=== PATIENT | female | born 1960 | race Caucasian/White ===

== ENCOUNTER 2017-10-05 22:32 | Inpatient (IN) | payer BC, OTHER ==
[~2017-10-05] VITALS: Ht 162.6 cm; Wt 90.7 kg
[2017-10-06] VITALS (8 sets, daily range): BP systolic 135–175; BP diastolic 80–102
[2017-10-06] MEDS ORDERED: MAG HYDROX/AL HYDROX/SIMETH 30 ML LIQUID UDC PO PRN
[2017-10-06] MEDS ORDERED: diphenhydrAMINE 50 MG CAPSULE PO PRN
[2017-10-06] MEDS ORDERED: IBUPROFEN 600 MG TABLET PO PRN
[2017-10-06] MEDS ORDERED: MIRALAX 17 GM POWD.PACK PO PRN
[2017-10-06] MEDS ORDERED: MAGNESIUM HYDROXIDE 30 ML LIQUID UDC PO PRN
[2017-10-06] MEDS ORDERED: ONDANSETRON ODT 4 MG TAB.RAPDIS SL PRN
[2017-10-06] MEDS ORDERED: CLONIDINE HCL 0.1 MG TABLET PO PRN
[2017-10-06] MEDS ORDERED: LORAZEPAM 2 MG/1 ML VIAL IM PRN
[2017-10-06] MEDS ORDERED: LOPERAMIDE HCL 2 MG CAPSULE PO PRN ×2
[2017-10-06] MEDS ORDERED: ONDANSETRON 4 MG/2 ML VIAL IM PRN
[2017-10-06] MEDS ORDERED: THIAMINE HCL 200 MG/2 ML VIAL IM ONE
[2017-10-06] MEDS ORDERED: DICYCLOMINE HCL 20 MG TABLET PO PRN
[2017-10-06] MEDS ORDERED: LORAZEPAM 1 MG TABLET PO PRN ×2
[2017-10-06] MEDS ORDERED: ACETAMINOPHEN 325 MG TABLET PO PRN
[2017-10-06 00:24] LABS: BASOPHILS % (AUTO) 0.3 % (0.0-2.0); EOSINOPHILS # (AUTO) 0.2 K/uL (0.0-0.7); EOSINOPHILS % (AUTO) 3.8 % (0.0-7.0); HEMATOCRIT 43.6 % (37-47); HEMOGLOBIN 13.9 G/DL (12.0-16.0); LYMPHOCYTES # (AUTO) 2.3 K/UL (0.8-4.8); LYMPHOCYTES % (AUTO) 35.8 % (20.5-51.5); MEAN CORPUSCULAR HEMOGLOBIN 26.9 UUG (27.0-31.0); MEAN CORPUSCULAR HGB CONC 32 g/dL (32.0-37.0); MEAN CORPUSCULAR VOLUME 84.8 FL (81.0-99.0); MONOCYTES # (AUTO) 0.5 K/UL (0.1-1.30); MONOCYTES % (AUTO) 7.9 % (0.0-11.0); NEUTROPHILS # (AUTO) 3.5 K/UL (1.8-8.9); NEUTROPHILS % (AUTO) 52.2 % (38.5-71.5); PLATELET COUNT (AUTO) 246 K/UL (150-450); RED BLOOD CELL COUNT(AUTO) 5.15 MIL/UL (4.2-5.4); WHITE BLOOD COUNT (AUTO) 6.5 K/UL (4.0-11.2)
[2017-10-06 00:46] LABS: ALANINE AMINOTRANSFERASE 66 U/L (14-59); ALKALINE PHOSPHATASE 84 U/L (50-136); AMYLASE 37 U/L (25-115); ASPARTATE AMINOTRANSFERASE 42 U/L (15-37); BILIRUBIN,TOTAL 0.4 mg/dL (0.2-1.0); CARBON DIOXIDE 32 mmol/L (21-32); CHLORIDE 100 mmol/L (98-107); CREATININE 0.9 mg/dL (0.6-1.3); MAGNESIUM 1.7 mg/dL (1.8-2.4); POTASSIUM 3.8 mmol/L (3.5-5.1); TOTAL PROTEIN, SERUM 8.3 g/dL (6.4-8.2); UREA NITROGEN, BLOOD 9 mg/dL (7-18)
[2017-10-06] MEDS ORDERED: THIAMINE HCL 200 MG/2 ML VIAL ONE (00:59)
[2017-10-06 01:02] LABS: ETHANOL < 3 MG/DL (0-0)
[2017-10-06 01:04] LABS: GLUCOSE 312 mg/dL (74-106)
[2017-10-06 03:30] LABS: *URINE HCG, QUAL NEGATIVE (NEGATIVE)
[2017-10-06 03:47] LABS: *AMPHETAMINE, URINE NEGATIVE (NEGATIVE); *BARBITURATE, URINE NEGATIVE (NEGATIVE); *CANNABINOID, URINE NEGATIVE (NEGATIVE); *COCCAINE, URINE NEGATIVE (NEGATIVE); *OPIATE, URINE NEGATIVE (NEGATIVE); *PHENCYCLIDINE SCREEN,URINE NEGATIVE (NEGATIVE)
[2017-10-06] MEDS ORDERED: GABA-534 PO (04:35)
[2017-10-06] MEDS ORDERED: IBUP-1957 PO (04:35)
[2017-10-06] MEDS ORDERED: GLYB2.5T4 PO (04:35)
[2017-10-06] MEDS ORDERED: HYDR25TA4 PO (04:35)
[2017-10-06] MEDS ORDERED: ASPI-605 PO (04:35)
[2017-10-06] MEDS ORDERED: CYCL10TA9 PO (04:35)
[2017-10-06] MEDS ORDERED: LOSA100T15 PO (04:35)
[2017-10-06] MEDS: THIAMINE HCL 100 MG TABLET PO SCH (08:52)
[2017-10-06] MEDS: MULTIVITAMINS,THERAPEUTIC TABLET PO SCH (08:52)
[2017-10-06] MEDS: FOLIC ACID 1 MG TABLET PO SCH (08:52)
[2017-10-06] MEDS ORDERED: TUBERCULIN,PURIF.PROT.DERIV. 5 TU/0.1 ML TEST ID ONE (09:00)
[2017-10-06] MEDS ORDERED: MAGNESIUM OXIDE 400 MG TABLET PO ONE (10:00)
[2017-10-06] MEDS ORDERED: DEXTROSE 50% 50 ML DISP.SYRIN IV PRN (11:45)
[2017-10-06] MEDS: GABAPENTIN 300MG PO SCH ×2 (13:12→17:11)
[2017-10-06] MEDS ORDERED: LOSARTAN POTASSIUM 50 MG TABLET PO ONE ×2 (15:00→20:15)
[2017-10-06] MEDS ORDERED: HYDROCHLOROTHIAZIDE 25 MG TABLET PO ONE (15:00)
[2017-10-06] MEDS ORDERED: LORAZEPAM 1 MG TABLET PO ONE ×2 (15:00→21:00)
[2017-10-06] MEDS: BLOOD SUGAR DIAGNOSTIC 1 EACH STRIP VI SCH ×2 (17:11→21:34)
[2017-10-06] MEDS: GLYBURIDE 2.5 MG PO SCH (17:12)
[2017-10-06] MEDS: INSULIN REGULAR, HUMAN 300 UNIT/3 ML VIAL SQ PRN (17:29)
[2017-10-06] MEDS: hydrALAZINE HCL 50 MG TABLET PO PRN (17:34)
[2017-10-06] MEDS ORDERED: hydrALAZINE HCL 50 MG TABLET PO ONE (20:15)
[2017-10-06] MEDS: ATORVASTATIN 20 MG TABLET PO SCH (21:30)
[2017-10-06] MEDS: INSULIN REGULAR, HUMAN 300 UNITS/3 ML VIAL SQ PRN (21:35)
[2017-10-07] VITALS (7 sets, daily range): BP systolic 137–179; BP diastolic 86–97
[2017-10-07] MEDS: hydrALAZINE HCL 50 MG TABLET PO PRN ×2 (05:48→16:59)
[2017-10-07 07:21] LABS: BILIRUBIN,DIRECT 0.1 mg/dL (0.0-0.2); BILIRUBIN,TOTAL 0.3 mg/dL (0.2-1.0); CREATININE 0.7 mg/dL (0.6-1.3); MAGNESIUM 2.7 mg/dL (1.8-2.4); TOTAL PROTEIN, SERUM 7.6 g/dL (6.4-8.2)
[2017-10-07] MEDS: BLOOD SUGAR DIAGNOSTIC 1 EACH STRIP VI SCH ×4 (07:52→21:20)
[2017-10-07] MEDS: MULTIVITAMINS,THERAPEUTIC TABLET PO SCH (08:25)
[2017-10-07] MEDS: FOLIC ACID 1 MG TABLET PO SCH (08:25)
[2017-10-07] MEDS: HYDROCHLOROTHIAZIDE 25MG PO SCH (08:26)
[2017-10-07] MEDS: GLYBURIDE 2.5 MG PO SCH ×2 (08:26→17:00)
[2017-10-07] MEDS: GABAPENTIN 300MG PO SCH ×3 (08:27→16:59)
[2017-10-07] MEDS: LOSARTAN 100MG PO SCH (08:27)
[2017-10-07] MEDS: ASPIRIN 81 MG PO SCH (08:27)
[2017-10-07] MEDS: INSULIN REGULAR, HUMAN 300 UNIT/3 ML VIAL SQ PRN ×3 (08:29→17:02)
[2017-10-07] MEDS: THIAMINE HCL 100 MG TABLET PO SCH (09:07)
[2017-10-07 09:12] LABS: HEPATITIS B SURFACE AG Negative (Negative)
[2017-10-07] MEDS: LORAZEPAM 1 MG TABLET PO SCH ×3 (12:43→21:30)
[2017-10-07] MEDS ORDERED: AMLODIPINE 5 MG TABLET PO ONE (17:00)
[2017-10-07] MEDS ORDERED: INSULIN DETEMIR 300 UNIT/3 ML CARTRIDGE SQ SCH (21:00)
[2017-10-07] MEDS: INSULIN REGULAR, HUMAN 300 UNITS/3 ML VIAL SQ PRN (21:27)
[2017-10-07] MEDS: ATORVASTATIN 20 MG TABLET PO SCH (21:30)
[2017-10-08] VITALS: BP 120/87
[2017-10-08 04:00] VITALS: BP 135/92
[2017-10-08 08:00] VITALS: BP 155/81
[2017-10-08] MEDS: BLOOD SUGAR DIAGNOSTIC 1 EACH STRIP VI SCH ×4 (08:19→20:56)
[2017-10-08] MEDS: GLYBURIDE 2.5 MG PO SCH ×2 (08:19→17:01)
[2017-10-08] MEDS: INSULIN REGULAR, HUMAN 300 UNIT/3 ML VIAL SQ PRN ×3 (08:40→16:47)
[2017-10-08] MEDS: HYDROCHLOROTHIAZIDE 25MG PO SCH (08:41)
[2017-10-08] MEDS: THIAMINE HCL 100 MG TABLET PO SCH (08:41)
[2017-10-08] MEDS: ASPIRIN 81 MG PO SCH (08:41)
[2017-10-08] MEDS: MULTIVITAMINS,THERAPEUTIC TABLET PO SCH (08:42)
[2017-10-08] MEDS: GABAPENTIN 300MG PO SCH (08:56)
[2017-10-08] MEDS: FOLIC ACID 1 MG TABLET PO SCH (08:56)
[2017-10-08] MEDS ORDERED: LORAZEPAM 1 MG TABLET PO SCH (09:00)
[2017-10-08] MEDS ORDERED: AMLODIPINE 5 MG TABLET PO SCH ×2 (09:00→21:00)
[2017-10-08 12:45] VITALS: BP 151/109
[2017-10-08] MEDS: GABAPENTIN 300 MG CAPSULE PO SCH ×3 (13:00→16:43)
[2017-10-08] MEDS: LOSARTAN 100MG PO SCH (13:21)
[2017-10-08 16:00] VITALS: BP 131/82
[2017-10-08 20:00] VITALS: BP 143/89
[2017-10-08] MEDS: ATORVASTATIN 20 MG TABLET PO SCH (20:26)
[2017-10-08] MEDS: INSULIN REGULAR, HUMAN 300 UNITS/3 ML VIAL SQ PRN (20:59)
[2017-10-08] MEDS ORDERED: INSULIN DETEMIR 300 UNIT/3 ML CARTRIDGE SQ SCH (21:00)
[2017-10-08] MEDS ORDERED: LOSA100T15 PO (21:38)
[2017-10-08] MEDS ORDERED: GLYB2.5T4 PO (21:38)
[2017-10-08] MEDS ORDERED: GABA-534 PO (21:38)
[2017-10-08] MEDS ORDERED: ASPI-605 PO (21:38)
[2017-10-08] MEDS ORDERED: IBUP-1955 PO (21:38)
[2017-10-08] MEDS ORDERED: HYDR25TA4 PO (21:38)
[2017-10-08] MEDS ORDERED: ATOR20TA PO (21:38)
[2017-10-08] MEDS ORDERED: INSU100I19 SQ (21:38)
[2017-10-08] MEDS ORDERED: AMLO10TA2 PO (21:38)
[2017-10-08] MEDS ORDERED: DIPH50CA37 PO (21:38)
[2017-10-09] VITALS: BP 120/75
[2017-10-09 04:00] VITALS: BP 154/89
[2017-10-09] MEDS: hydrALAZINE HCL 50 MG TABLET PO PRN (04:38)
[2017-10-09 05:35] VITALS: BP 145/74
[2017-10-09] MEDS: BLOOD SUGAR DIAGNOSTIC 1 EACH STRIP VI SCH (08:27)
[2017-10-09] MEDS: INSULIN REGULAR, HUMAN 300 UNIT/3 ML VIAL SQ PRN (08:28)
[2017-10-09] MEDS: LOSARTAN 100MG PO SCH (08:28)
[2017-10-09] MEDS: HYDROCHLOROTHIAZIDE 25MG PO SCH (08:28)
[2017-10-09] MEDS: GLYBURIDE 2.5 MG PO SCH (08:28)
[2017-10-09] MEDS: ASPIRIN 81 MG PO SCH (08:28)
[2017-10-09] MEDS: GABAPENTIN 300 MG CAPSULE PO SCH (08:29)
[2017-10-09] MEDS: FOLIC ACID 1 MG TABLET PO SCH (08:29)
[2017-10-09] MEDS: MULTIVITAMINS,THERAPEUTIC TABLET PO SCH (08:29)
[2017-10-09] MEDS: THIAMINE HCL 100 MG TABLET PO SCH (08:29)
[2017-10-09 08:34] VITALS: BP 129/89
[2017-10-09] MEDS ORDERED: AMLODIPINE 10 MG TABLET PO SCH (09:00)
== END 2017-10-09 09:40 | disposition other institution (70) | DRG 895 ==
LOC: SRC 22:32
PROVIDERS: ADMIT Internal Medicine; ATTEND Internal Medicine
DX: F10.230 Alcohol dependence with withdrawal, uncomplicated (principal); E11.65 Type 2 diabetes mellitus with hyperglycemia; Y90.9 Presence of alcohol in blood, level not specified; I10 Essential (primary) hypertension; Z79.84 Long term (current) use of oral hypoglycemic drugs; Z86.73 Personal history of transient ischemic attack (TIA), and cerebral infarction without residual deficits; Z82.5 Family history of asthma and other chronic lower respiratory diseases; Z82.49 Family history of ischemic heart disease and other diseases of the circulatory system; E78.5 Hyperlipidemia, unspecified; F17.211 Nicotine dependence, cigarettes, in remission; E83.42 Hypomagnesemia; E66.9 Obesity, unspecified; Z68.34 Body mass index [BMI] 34.0-34.9, adult; Z71.3 Dietary counseling and surveillance; K70.0 Alcoholic fatty liver; G89.29 Other chronic pain; G47.33 Obstructive sleep apnea (adult) (pediatric); M54.5 Low back pain
CPT/HCPCS: 36415; 70030-TC; 80307; 83735; 84703; 85025; 86580; 86592; 86705; 86803; 87340; 87806; A4663; G0480; J1815; J3411